=== PATIENT | female | born 1955 | race Caucasian/White ===

== ENCOUNTER 2017-04-04 11:09 | Emergency (ER) | payer OTHER ==
[2017-04-04 11:39] VITALS: BP 123/71
[2017-04-04] MEDS ORDERED: Fluorescein Sodium TOPICAL* 1 MG TEST OPHTHALMIC ONE (12:08)
[2017-04-04] MEDS ORDERED: Tetracaine 0.5% OPTH.SOL 4 ML* 1 DROP BTL LEFT EYE ONE (12:08)
[2017-04-04] MEDS ORDERED: Eye Irrigation Solution 30 ML BOTTLE LEFT EYE ONE (12:09)
--- NOTE | 2017-04-04 13:23 | UC ---
Eye Complaint HPI - HPI Summary HPI Summary: AT 9AM THIS MORNING WAS DRYING FACE WITH A TOWEL, FEELS LIKE FB IN LEFT EYE. NO PAIN WITH EYE MOVEMENT NO DISCHARGE. - History of Current Complaint Chief Complaint: UCEye Stated Complaint: FB IN EYE Time Seen by Provider: 04/04/17 11:58 Hx Obtained From: Patient Onset/Duration: Sudden Onset, Lasting Hours, Still Present Timing: Hours Severity Initially: Mild Severity Currently: Mild Pain Intensity: 5 Pain Scale Used: 0-10 Numeric Location of Injury: Eye Lid (upper) Character: Dull, Foreign Body Sensation Aggravating Factor(s): Blinking Alleviating Factor(s): Nothing Associated Signs And Symptoms: Positive: Negative Related History: Other - CORNEAL ABRASION - Risk Factors Penetrating Injury Risk Factor: Negative - Allergies/Home Medications Allergies/Adverse Reactions: Allergies Allergy/AdvReac Type Severity Reaction Status Date / Time Acetaminophen [From Percocet] AdvReac Intermediate Nausea Verified 04/04/17 11: 21 Cefaclor [From Ceclor] AdvReac Intermediate Nausea Verified 04/04/17 11:21 Oxycodone [From Percocet] AdvReac Intermediate Nausea Verified 04/04/17 11:21 Home Medications: Home Medications Aspirin [Miniprin Low Dose] 1 tab PO DAILY 04/04/17 [History Confirmed 04/04/17] Calcium 2 tab PO DAILY 04/04/17 [History Confirmed 04/04/17] Ergocalciferol [Vitamin D2] 3 tab PO DAILY 04/04/17 [History Confirmed 04/04/17] Glucosamine Sulfate 200 mg PO DAILY 04/04/17 [History Confirmed 04/04/17] Ibuprofen TAB* [Motrin TAB* 600 MG] 1 tab PO Q8HR PRN 04/04/17 [History Confirmed 04/04/17] Multiple Vitamins W/ Minerals [Womens Multivitamin] 1 tab PO DAILY 04/04/17 [ History Confirmed 04/04/17] Mio 3 Fatty Acids-Mio 6 FA [Mio-3 & Mio-6 Fish Oi] 1 cap PO DAILY [History Confirmed 04/04/17] Vitamin E [Jaqui-E] 1 tab PO DAILY 04/04/17 [History Confirmed 04/04/17] PMH/Surg Hx/FS Hx/Imm Hx Previously Healthy: Yes - Surgical History Surgical History: Yes Surgery Procedure, Year, and Place: HIP REPLACEMENT LEFT OCT 2016 - Family History Known Family History: Negative: Other - GLAUCOMA - Social History Occupation: Employed Full-time Lives: With Family Alcohol Use: Weekly Substance Use Type: None Smoking Status (MU): Never Smoked Tobacco Review of Systems Constitutional: Negative Skin: Negative Eyes: Other - FB SENSATION LEFT EYE ENT: Negative Respiratory: Negative Cardiovascular: Negative Gastrointestinal: Negative Genitourinary: Negative Motor: Negative Neurovascular: Negative Musculoskeletal: Negative Neurological: Negative Psychological: Negative All Other Systems Reviewed And Are Negative: Yes Physical Exam Triage Information Reviewed: Yes Appearance: Well-Appearing, No Pain Distress, Well-Nourished Vital Signs: Initial Vital Signs Temp 97.7 F 04/04/17 11:31 Pulse 61 04/04/17 11:31 Resp 16 04/04/17 11:31 BP 123/71 04/04/17 11:31 Pulse Ox 98 04/04/17 11:31 Vital Signs Reviewed: Yes Eyes: Positive: Other: - NO FB VISUALIZED; SOME FLUORESCEIN UPTAKE AT SCLERA NEAR CORNEA ( 9 OCLOCK); NEGATIVE SIDELS SIGN. NO DISCHARGE; EYE THOROUGHLY RINSED AFTER EXAM ENT Exam: Normal ENT: Positive: Normal ENT inspection, Hearing grossly normal, Pharynx normal, TMs normal Dental Exam: Normal Neck exam: Normal Neck: Positive: Supple, Nontender, No Lymphadenopathy Respiratory Exam: Normal Respiratory: Positive: Chest non-tender, Lungs clear, Normal breath sounds, No respiratory distress, No accessory muscle use Cardiovascular Exam: Normal Cardiovascular: Positive: RRR, No Murmur Abdominal Exam: Normal Musculoskeletal Exam: Normal Musculoskeletal: Positive: Strength Intact, ROM Intact Neurological Exam: Normal Psychological Exam: Normal Skin Exam: Normal Eye Complaint Course/Dx - Differential Dx/Diagnosis Differential Diagnosis/HQI/PQRI: Conjunctivitis, Corneal Abrasion, Foreign Body , Uveitis Provider Diagnoses: LEFT SCLERAL ABRASION; NO FOREIGN BODY VISUALIZED Discharge - Discharge Plan Condition: Stable Disposition: HOME Patient Education Materials: Eye Foreign Body (ED) Referrals: Cecelia Sepulveda MD [Primary Care Provider] - Matt An MD [Medical Doctor] -
== END 2017-04-04 12:32 | disposition home or self-care (01) ==
LOC: UCEAST 11:09
DX: S05.02XA Injury of conjunctiva and corneal abrasion without foreign body, left eye, initial encounter (principal); X58.XXXA Exposure to other specified factors, initial encounter
CPT/HCPCS: 99212; A9270-GY; G0463

== ENCOUNTER 2020-02-05 09:06 | Inpatient (IN) | payer OTHER ==
[2020-02-05] MEDS ORDERED: NS 0.9% 1000 ml BAG 1,910 ML IV ONE (09:39)
[2020-02-05] MEDS ORDERED: Vancomycin(*) 1,000 MG VIAL IVPB SCH (09:43)
[2020-02-05] MEDS ORDERED: Cefepime 2 GM in Dextrose(*) 2 GM/50 ML BAG IV ONE ×2 (09:49→10:00)
[2020-02-05] MEDS ORDERED: Vancomycin 1500 MG IV - x ONCE IVPB ONE (10:00)
[2020-02-05] MEDS ORDERED: NS 0.9% IVPB ONE (10:01)
[2020-02-05] MEDS ORDERED: CEFEPIME IVPB ONE (10:01)
[2020-02-05 10:21] LABS: ABS Lymphocytes 0.4 10^3/ul (1.0-4.8); ABS Monocytes 0.8 10^3/ul (0-0.8); Eosinophil % 0.1 %; Hematocrit 45 % (35-47); Lymphocyte % 2.5 %; Mean Corpuscular HGB Conc 34 g/dL (31-36); Mean Corpuscular Hemoglobin 31 pg (27-31); Mean Corpuscular Volume 91 fL (80-97); Mean Platelet Volume 8.7 fL (7.4-10.4); Platelet Count 206 10^3/uL (150-450); Red Cell Distribution Width 13 % (10-15); White Blood Count 14.1 10^3/uL (3.5-10.8)
[2020-02-05 10:36] LABS: Albumin 4.3 g/dL (3.2-5.2); Albumin/Globulin Ratio 1.7 (1-3); BUN/Creatinine Ratio 18.5 (8-20); C Reactive Protein 6.09 mg/L (<8.01); Calcium 9.4 mg/dL (8.6-10.3); EGFR African American 86.7 (>60); EGFR Non-African American 71.6 (>60); Globulin 2.5 g/dL (2-4); Total Bilirubin 0.9 mg/dL (0.2-1.0); Total Protein 6.8 g/dL (6.4-8.9)
[2020-02-05 10:38] LABS: INR 1.14 (0.82-1.09)
[2020-02-05 11:51] LABS: Erythrocyte Sed Rate 1 mm/Hr (0-29)
[2020-02-05 13:05] LABS: Urine Appearance Clear; Urine Bilirubin Negative (Negative); Urine Blood Negative (Negative); Urine Color Straw; Urine Glucose Negative (Negative); Urine Ketones Trace (Negative); Urine Nitrite Negative (Negative); Urine Protein Negative (Negative); Urine Specific Gravity 1.004 (1.010-1.030); Urine Urobilinogen Negative (Negative)
[2020-02-05] MEDS ORDERED: Vancomycin(*) 1,000 MG in NS 0.9% 250 ml 250 ML IVPB ONE (13:10)
[2020-02-05] MEDS ORDERED: Vancomycin per Pharmacy 1 EA NOTE FOLLOW UP SCH (14:00)
[2020-02-05] MEDS: Heparin 5000 UNITS/ML VIAL(*) 1 ml vial SUBCUT SCH ×2 (14:38→21:51)
[2020-02-05 14:58] LABS: Magnesium 1.7 mg/dL (1.9-2.7)
[2020-02-05] MEDS: Potassium Chlor 20 meq TAB.ER PO SCH ×2 (17:08→21:47)
[2020-02-05 17:10] LABS: Body Fluid Source OTH
[2020-02-05 18:14] LABS: Body Fluid Mono 1 %
[2020-02-05] MEDS: Vancomycin(*) 1,000 MG in NS 0.9% 250 ml 250 ML IV SCH (18:14)
[2020-02-06] MEDS ORDERED: Cefepime ADVAN(*) 1 GM in NS 0.9% 50 ML 50 ML IVPB SCH (01:00)
[2020-02-06] MEDS: Cefepime 1 GM in Dextrose(*) 1 GM/50 ML q12h (Duplex) IV SCH ×2 (01:06→13:08)
[2020-02-06] MEDS: Vancomycin(*) 1,000 MG in NS 0.9% 250 ml 250 ML IV SCH ×3 (01:06→18:09)
[2020-02-06] MEDS: Heparin 5000 UNITS/ML VIAL(*) 1 ml vial SUBCUT SCH ×3 (06:36→21:58)
[2020-02-06 09:09] LABS: ABS Eosinophils 0.1 10^3/ul (0-0.6); ABS Lymphocytes 0.7 10^3/ul (1.0-4.8); ABS Monocytes 0.5 10^3/ul (0-0.8); Eosinophil % 0.6 %; Hematocrit 40 % (35-47); Hemoglobin 13.7 g/dL (12.0-16.0); Lymphocyte % 8.4 %; Mean Corpuscular HGB Conc 34 g/dL (31-36); Mean Corpuscular Hemoglobin 31 pg (27-31); Mean Corpuscular Volume 92 fL (80-97); Mean Platelet Volume 8.2 fL (7.4-10.4); Platelet Count 160 10^3/uL (150-450); Red Cell Distribution Width 14 % (10-15); White Blood Count 8.2 10^3/uL (3.5-10.8)
[2020-02-06 09:25] LABS: BUN/Creatinine Ratio 11.5 (8-20); C Reactive Protein 140.57 mg/L (<8.01); Calcium 8.9 mg/dL (8.6-10.3); EGFR African American 90.6 (>60); EGFR Non-African American 74.8 (>60); Potassium 4.3 mmol/L (3.5-5.0)
[2020-02-06] MEDS ORDERED: Vancomycin Trough Check NOTE FOLLOW UP ONE (09:30)
[2020-02-07] MEDS: Cefepime 1 GM in Dextrose(*) 1 GM/50 ML q12h (Duplex) IV SCH (01:16)
[2020-02-07] MEDS: Vancomycin(*) 1,000 MG in NS 0.9% 250 ml 250 ML IV SCH ×3 (02:05→18:11)
[2020-02-07] MEDS: Heparin 5000 UNITS/ML VIAL(*) 1 ml vial SUBCUT SCH ×3 (06:20→22:10)
[2020-02-07 06:56] LABS: ABS Eosinophils 0.3 10^3/ul (0-0.6); ABS Lymphocytes 1.4 10^3/ul (1.0-4.8); ABS Monocytes 0.8 10^3/ul (0-0.8); Eosinophil % 4.1 %; Hematocrit 37 % (35-47); Hemoglobin 12.8 g/dL (12.0-16.0); Lymphocyte % 20.4 %; Mean Corpuscular HGB Conc 35 g/dL (31-36); Mean Corpuscular Hemoglobin 32 pg (27-31); Mean Corpuscular Volume 91 fL (80-97); Mean Platelet Volume 8.9 fL (7.4-10.4); Platelet Count 144 10^3/uL (150-450); Red Blood Count 4.04 10^6 /uL (3.70-4.87); Red Cell Distribution Width 14 % (10-15)
[2020-02-07 07:10] LABS: BUN/Creatinine Ratio 10.4 (8-20); C Reactive Protein 101.3 mg/L (<8.01); Calcium 8.5 mg/dL (8.6-10.3); EGFR African American 107.9 (>60); EGFR Non-African American 89.2 (>60); Potassium 3.8 mmol/L (3.5-5.0)
[2020-02-07 08:33] LABS: Erythrocyte Sed Rate 19 mm/Hr (0-29)
[2020-02-08] MEDS: Vancomycin(*) 1,000 MG in NS 0.9% 250 ml 250 ML IV SCH ×2 (02:32→09:42)
[2020-02-08] MEDS: Heparin 5000 UNITS/ML VIAL(*) 1 ml vial SUBCUT SCH (06:23)
[2020-02-08 11:30] VITALS: BP 103/63
[2020-02-08] MEDS ORDERED: Vancomycin Trough Check NOTE FOLLOW UP ONE (18:00)
== END 2020-02-08 12:00 | disposition home or self-care (01) | DRG 872 ==
LOC: ED 09:06 → SSU 12:28
PROVIDERS: ADMIT Internal Medicine; ATTEND Hospitalist